=== PATIENT | male | born 1985 | race Two or more races ===

== ENCOUNTER 2020-02-16 10:56 | Emergency (ER) | payer OTHER ==
[~2020-02-16] VITALS: Ht 182.9 cm; Wt 108.9 kg
--- NOTE | 2020-02-16 11:00 | NUR ---
ED Nurse Note: Patient brought into ED by RA Rollins accompanied by [employer] from the [facility] c/o medical clearance, patient presents with a stuck tazer ida located on his upper right abdomen, complains of no pain at this time, patient is alert and oriented x4. patient placed in a gurney, will continue to monitor
[2020-02-16 11:22] VITALS: BP 148/88
--- NOTE | 2020-02-16 11:30 | NUR ---
ED Nurse Note: Dr. Nunn at bedside and has successfully dislodged the object located on patients right upper abdomen. applied bandage
--- NOTE | 2020-02-16 12:35 | Emergency Room Report ---
History of Present Illness General Chief Complaint: Medical Clearance Source: Patient Present Illness HPI This patient is brought in custody by [place] police department. The patient had resisted arrest and had been tasered. Two taser barbs were lodged in the patient's abdomen and the patient presents for ida removal. Allergies: Coded Allergies: No Known Allergies (Unverified , 02/16/20) COVID-19 Screening Contact w/high risk pt: No Recent Travel to affected area: No Experienced COVID-19 symptoms?: No COVID-19 Testing performed SUPERINTENDENT HORTICULTURE: No Patient History Past Medical History: see triage record, other - RA, Hx of PE, coagulopathy ( on Eliquis). Reviewed Nursing Documentation: PMH: Agreed; PSxH: Agreed Nursing Documentation-PMH Past Medical History: No Stated History Review of Systems All Other Systems: negative except mentioned in HPI Physical Exam Vital Signs Date Time Temp Pulse Resp B/P (MAP) Pulse Ox O2 Delivery O2 Flow Rate FiO2 02/16/20 10:52 98.2 95 18 148/88 (108) 98 Room Air Sp02 EP Interpretation: reviewed, normal General Appearance: no apparent distress, alert, GCS 15, non-toxic Head: normocephalic, atraumatic Eyes: bilateral eye normal inspection ENT: hearing grossly normal, normal pharynx, no angioedema, normal voice Neck: full range of motion, supple/symm/no masses Respiratory: chest non-tender, lungs clear, normal breath sounds, no respiratory distress, no retraction, no accessory muscle use, speaking full sentences Cardiovascular #1: regular rate, rhythm, no edema Gastrointestinal: normal bowel sounds, non tender, soft, non-distended, no guarding, no rebound, other - 2 taser barbs in abdomen Rectal: deferred Musculoskeletal: normal inspection, normal range of motion, non-tender Neurologic: alert, motor strength/tone normal, oriented x3, sensory intact, responsive, speech normal Psychiatric: judgement/insight normal, memory normal, mood/affect normal, no suicidal/homicidal ideation Skin: normal color Medical Decision Making Diagnostic Impression: Primary Impression: Taser injury ER Course The patient presents with taser barbs embedded in her abdomen. Adhesions were removed by Dr. Nunn. See his note. There were no complications. The patient does have a complicated medical history but none of them are acute. This patient will be seen by long-term medical so she can obtain her usual medications. There are no emergency medical conditions that need further evaluation at this time. The patient is cleared for booking. Last Vital Signs Date Time Temp Pulse Resp B/P (MAP) Pulse Ox O2 Delivery O2 Flow Rate FiO2 02/16/20 11:22 98 18 02/16/20 11:22 98.2 148/88 98 Room Air Status: improved Disposition: LAW ENFORCEMENT IN CUST Condition: Stable Referrals: NOT CHOSEN IPA/,REFERRING (PCP) Eugenia Macias DO February 16, 2020 12:35
--- NOTE | 2020-02-16 12:40 | NUR ---
ER DISCHARGE NOTE: Patient is cleared to be discharged per ERMD, pt is aox4, on room air, with stable vital signs. pt was given dc and prescription instructions, pt was able to verbalize understanding, pt id band removed without complications. pt is able to ambulate with steady gait. pt took all belongings and left with [employer].
[2020-02-16 12:43] VITALS: BP 145/79
--- NOTE | 2020-02-16 15:23 | Consultation ---
History of Present Illness General Date patient seen: February 16, 2020 Reason for Hospitalization: Medical Clearance Present Illness HPI This is a 34-year-old male who identifies as a female presented to [facility] in the custody of [employer] who had been arrested recently and required a taser to be used. Patient was brought emerge department and unfortunately taser prongs cannot be removed. Surgery was called to evaluate and assist with care. Patient seen e emergency department. Chart reviewed. Patient examined. Discussion with [employer]. Discussion with emergency room staff. Patient does not want to provide any information regards to care history and plan. Patient is cooperative and compliant just does not want to provide information. No nausea vomiting fever chills. Patient states that she has a very high pain tolerance and does not feel pain is others do. States no pain currently. States feels nothing. As well. Is handcuffed to the bed and consents to removal of taser's. Allergies: Coded Allergies: No Known Allergies (Unverified , 02/16/20) COVID-19 Screening Contact w/high risk pt: No Recent Travel to affected area: No Experienced COVID-19 symptoms?: No Patient History History Provided By: Patient, Medical Record, PMD, Law Enforcement Healthcare decision maker Resuscitation status Advanced Directive on File Past Medical/Surgical History Past Medical/Surgical History: (1) Taser injury Review of Systems Review of Symptoms General ROS: no weight loss or fever Psychological ROS: no depression or mood changes, no memory loss Ophthalmic ROS: no visual changes or eye irritation ENT ROS: no nasal congestion, hearing loss, dizziness Allergy and Immunology ROS: no allergic symptoms or urticaria Hematological and Lymphatic ROS: no swollen glands, unusual bleeding or bruising Endocrine ROS: no polyuria, polydipsia, weight changes, temperature intolerance Respiratory ROS: no cough, shortness of breath, or wheezing Cardiovascular ROS: no chest pain or dyspnea on exertion Gastrointestinal ROS: denies abdominal pain, bright red blood in stool. Musculoskeletal ROS: no myalgias or arthralgias Neurological ROS: no TIA or stroke symptoms Dermatological ROS: no new or changing skin lesions, rashes or pruritis Physical Exam Physical Exam General appearance: alert, cooperative, no distress, appears stated age Head: Normocephalic, without obvious abnormality, atraumatic Eyes: conjunctivae/corneas clear. PERRL, EOM's intact. Fundi benign Throat: Lips, mucosa, and tongue normal. Teeth and gums normal Neck: supple, symmetrical, trachea midline, no adenopathy, thyroid: not enlarged, symmetric, no tenderness/mass/nodules, no carotid bruit and no JVD Lungs: clear to auscultation bilaterally Heart: regular rate and rhythm, S1, S2 normal, no murmur, click, rub or gallop Abdomen: soft, non-tender. Bowel sounds normal. No masses, no organomegaly Extremities: extremities normal, atraumatic, no cyanosis or edema Pulses: 2+ and symmetric Skin: Skin color, texture, turgor normal. No rashes or lesions see below Neurologic: Grossly normal Last 24 Hour Vital Signs Date Time Temp Pulse Resp B/P (MAP) Pulse Ox O2 Delivery O2 Flow Rate FiO2 02/16/20 12:43 98.2 92 18 145/79 98 Room Air 02/16/20 11:22 98 18 02/16/20 11:22 98.2 98 18 148/88 98 Room Air 02/16/20 10:52 98.2 95 18 148/88 (108) 98 Room Air Height (Feet): 6 Weight (Pounds): 240 Assessment/Plan Problem List: (1) Taser injury Assessment & Plan: 34-year-old male identifying is a female rested recent by [employer] but he is required. Has taser injury identified and unable to remove prongs by emergency department physician or [employer] or EMT. Surgery was called to evaluate and assist with care. Patient seen, patient evaluated y, chart reviewed. With patient's consent a thorough head to toe examination was performed given recent trauma injury and arrest. Patient is somewhat of a poor historian also does not provide much information and is delusional. Patient states pain tolerance off the charts and cannot feel nothing despite max amount of injury. I have concerns given the recent events of potential other injuries and therefore full examination was performed after full examination it was then identified that there were actually 2 taser prongs and patient one was in the mid abdomen other one was in the right thigh. Patient did not even know he had one in the right thigh and states he does not feel anything there. With an extended period time being spent greater than 1 hour with the patient's bedside and care plan I was able to identify the 2 prongs and remove them safely. Sites were cleaned to the prongs were identified the fishhook of the prong was noted in the direction in which it was going. With gentle traction and appropriate direction [employer]. the prongs were removed without complication. The wound beds were cleansed and dressings were applied. Patient tolerated removal both prongs and all wiring well. Patient was pleasant throughout the examination and removal fortunately. The remainder the examination was otherwise without significant trauma or acute finding. Thank you for let me participation's care. Cleared from surgical standpoint for discharge with [employer]. ICD Codes: T75.4XXA - Electrocution, initial encounter SNOMED: [id number] Qualifiers: Qualified Codes: T75.4XXA - Electrocution, initial encounter Abiodun Nunn February 16, 2020 15:23
== END 2020-02-16 12:40 ==
LOC: EDBD 10:56 → EMR 11:40
DX: S31.149A Puncture wound of abdominal wall with foreign body, unspecified quadrant without penetration into peritoneal cavity, initial encounter (principal); Y35.831A Legal intervention involving a conducted energy device, law enforcement official injured, initial encounter; Y92.9 Unspecified place or not applicable; Z79.01 Long term (current) use of anticoagulants; M06.9 Rheumatoid arthritis, unspecified; Z86.711 Personal history of pulmonary embolism
CPT/HCPCS: 99283